=== PATIENT | male | born 1960 | race African-American/Black ===

== ENCOUNTER 2016-10-26 19:00 | Inpatient (IN) | payer MEDICAID ==
[2016-10-26 21:42] VITALS: BP 139/73
[2016-10-26] MEDS ORDERED: Maalox 30 mL Cup PO PRN (22:18)
[2016-10-26] MEDS ORDERED: Levofloxacin 500mg/100mL 500 MG/100 ML BAG IV ONE (22:30)
[2016-10-26] MEDS: D5-0.45NS 1,000 ML IV SCH (23:30)
[2016-10-27] MEDS: Hydrocodone/APAP 5mg/325mg Tab PO PRN ×3 (00:11→14:41)
[2016-10-27 01:02] LABS: ALKALINE PHOSPHATASE 39 U/L (34-104); ANION GAP 9.3 (7.0-16.0); BILIRUBIN,TOTAL 0.2 mg/dL (0.3-1.0); BUN - UREA NITROGEN 20 mg/dL (7-25); BUN/CREATININE RATIO 15.4; CALCIUM SERUM 8.4 mg/dL (8.6-10.3); CARBON DIOXIDE 25.5 mEq/L (21.0-31.0); CHLORIDE 102 mEq/L (98-107); CREATININE - SERUM 1.3 mg/dL (0.7-1.3); GLUCOSE 116 mg/dL (70-105); POTASSIUM SERUM 3.8 mEq/L (3.5-5.1); SGOT 28 U/L (13-39); SGPT/ALT 15 U/L (7-52); SODIUM SERUM 133 mEq/L (136-145)
[2016-10-27 01:05] LABS: % BASOPHILS 0.5 % (0.0-2.0); % EOSINOPHILS 0.1 % (0.0-5.0); % MONOCYTES 5.8 % (2.0-10.0); % NEUTROPHILS 80.6 % (40.0-80.0); HEMATOCRIT 37.1 % (39.0-49.0); HEMOGLOBIN 12.8 gm/dL (13.2-17.3); MEAN CELL VOLUME 90.1 fl (80-99); MEAN CORPUSCULAR HGB CONC 34.4 pg (28.0-36.0); MEAN PLATELET VOLUME 8.6 fl; NEUTROPHILE ABSOLUTE 5.6 Th/cmm (1.8-8.0); PLATELET COUNT 236 Th/cmm (150-400); RED BLOOD COUNT 4.12 Mil/cmm (4.30-5.70); WHITE BLOOD COUNT 6.9 Th/cmm (4.8-10.8)
[2016-10-27] MEDS: metroNIDAZOLE 500mg/NS 100mL 500 MG/100 ML BAG IV SCH ×3 (05:08→22:20)
[2016-10-27 05:47] LABS: URINE COLOR YELLOW
[2016-10-27 05:48] LABS: URINE BILIRUBIN NEGATIVE (NEGATIVE); URINE BLOOD TRACE (NEGATIVE); URINE GLUCOSE (UA) NEGATIVE (NEGATIVE); URINE KETONE NEGATIVE (NEGATIVE); URINE PH 5.5; URINE PROTEIN 100 mg/dL (NEGATIVE); URINE UROBILINOGEN 0.2 E.U./dL (0.2 - 1.0)
[2016-10-27 05:49] LABS: URINE BACTERIA FEW /hpf (NONE SEEN); URINE EPITHELIAL CELLS FEW /lpf (FEW)
[2016-10-27] MEDS: Albuterol Nebulizer 2.5mg/3mL IH SCH ×2 (08:20→12:09)
[2016-10-27] MEDS: guaiFENesin 200 MG/10 ML UDC PO PRN ×2 (09:20→14:42)
--- NOTE | 2016-10-27 11:00 | Diagnostic Imaging Report ---
Portable chest x-ray History: Cough Allowing for portable technique the heart size is normal. No focal pulmonary parenchymal processes. No hilar or mediastinal abnormalities. Impression: No acute abnormalities.
[2016-10-27] MEDS: D5-0.45NS 1,000 ML IV SCH (12:14)
--- NOTE | 2016-10-27 13:03 | Internal Medicine Prog Note ---
Internal Medicine Subjective - Subjective Service Date: 10/27/16 ([id number]) Internal Medicine Objective - Results Result Diagrams: 10/27/16 00:20 10/27/16 00:20 Recent Labs: Laboratory Last Values WBC 6.9 Th/cmm (4.8-10.8) 10/27/16 00:20 RBC 4.12 Mil/cmm (4.30-5.70) L 10/27/16 00:20 Hgb 12.8 gm/dL (13.2-17.3) L 10/27/16 00:20 Hct 37.1 % (39.0-49.0) L 10/27/16 00:20 MCV 90.1 fl (80-99) 10/27/16 00:20 MCH 31.0 pg (26.0-30.0) H 10/27/16 00:20 MCHC Differential 34.4 pg (28.0-36.0) 10/27/16 00:20 RDW 13.0 % (11.5-20.0) 10/27/16 00:20 Plt Count 236 Th/cmm (150-400) 10/27/16 00:20 MPV 8.6 fl 10/27/16 00:20 Neutrophils % 80.6 % (40.0-80.0) H 10/27/16 00:20 Lymphocytes % 13.0 % (20.0-50.0) L 10/27/16 00:20 Monocytes % 5.8 % (2.0-10.0) 10/27/16 00:20 Eosinophils % 0.1 % (0.0-5.0) 10/27/16 00:20 Basophils % 0.5 % (0.0-2.0) 10/27/16 00:20 Sodium 133 mEq/L (136-145) L 10/27/16 00:20 Potassium 3.8 mEq/L (3.5-5.1) 10/27/16 00:20 Chloride 102 mEq/L (98-107) 10/27/16 00:20 Carbon Dioxide 25.5 mEq/L (21.0-31.0) 10/27/16 00:20 Anion Gap 9.3 (7.0-16.0) 10/27/16 00:20 BUN 20 mg/dL (7-25) 10/27/16 00:20 Creatinine 1.3 mg/dL (0.7-1.3) 10/27/16 00:20 Est GFR ( Amer) > 60.0 ml/min 10/27/16 00:20 Est GFR (Non-Af Amer) > 60.0 ml/min 10/27/16 00:20 BUN/Creatinine Ratio 15.4 10/27/16 00:20 Glucose 116 mg/dL (70-105) H 10/27/16 00:20 Calcium 8.4 mg/dL (8.6-10.3) L 10/27/16 00:20 Magnesium 2.0 mg/dL (1.9-2.7) 10/27/16 00:20 Total Bilirubin 0.2 mg/dL (0.3-1.0) L 10/27/16 00:20 AST 28 U/L (13-39) 10/27/16 00:20 ALT 15 U/L (7-52) 10/27/16 00:20 Alkaline Phosphatase 39 U/L (34-104) 10/27/16 00:20 Ammonia 81 umol/L (16-53) H 10/27/16 00:20 Total Protein 6.2 gm/dL (6.0-8.3) 10/27/16 00:20 Albumin 3.1 gm/dL (4.2-5.5) L 10/27/16 00:20 Globulin 3.1 gm/dL 10/27/16 00:20 Albumin/Globulin Ratio 1.0 (1.0-1.8) 10/27/16 00:20 TSH 0.83 uIU/ml (0.34-5.60) 10/27/16 00:20 Urine Source CLEAN C 10/27/16 01:35 Urine Color YELLOW 10/27/16 01:35 Urine Clarity HAZY (CLEAR) 10/27/16 01:35 Urine pH 5.5 10/27/16 01:35 Ur Specific [place] 1.47656 (1.005-1.030) H 10/27/16 01:35 Urine Protein 100 mg/dL (NEGATIVE) H 10/27/16 01:35 Urine Glucose (UA) NEGATIVE mg/dL (NEGATIVE) 10/27/16 01:35 Urine Ketones NEGATIVE mg/dL (NEGATIVE) 10/27/16 01:35 Urine Blood TRACE (NEGATIVE) 10/27/16 01:35 Urine Nitrate NEGATIVE (NEGATIVE) 10/27/16 01:35 Urine Bilirubin NEGATIVE (NEGATIVE) 10/27/16 01:35 Urine Urobilinogen 0.2 E.U./dL (0.2 - 1.0) 10/27/16 01:35 Ur Leukocyte Esterase NEGATIVE (NEGATIVE) 10/27/16 01:35 Urine RBC 2-5 /hpf (0-5) H 10/27/16 01:35 Urine WBC 2-5 /hpf (0-5) H 10/27/16 01:35 Ur Epithelial Cells FEW /lpf (FEW) 10/27/16 01:35 Urine Bacteria FEW /hpf (NONE SEEN) 10/27/16 01:35 Coarse Granular Casts 2-5 /lpf (NONE SEEN) H 10/27/16 01:35 - Physical Exam Vitals and I&O: Vital Signs Temp 99.0 F 10/27/16 12:00 Pulse 76 10/27/16 12:10 Resp 18 10/27/16 12:10 BP 114/65 10/27/16 12:00 Pulse Ox 99 10/27/16 12:10 Intake & Output 10/26/16 10/27/16 10/27/16 18:59 06:59 18:59 Intake Total 100 1000 Balance 100 1000 Weight (lbs) 166 lb 9.6 oz Intake: Intake, IV Amount 100 1000 D5-0.45NS 1,000 ml @ 100 1000 mls/hr IV .Q10H [facility] Rx#: [id number] metroNIDAZOLE 500mg/NS 100 100mL 500 mg In 100 ml @ 100 mls/hr IV Q8HR [facility] Rx #:[id number] Other: Stool Characteristics Mucoid Brown Active Medications: Current Medications Acetaminophen (Tylenol) 650 mg PO Q4HR PRN PRN Reason: Pain(mild-mod) or temp>101.0 Stop: 12/25/16 22:17 Acetaminophen/Hydrocodone Bitart ([place] 5mg/325mg) 1 tab PO Q4H PRN PRN Reason: Pain (Severe) Stop: 12/25/16 22:17 Last Admin: 10/27/16 09:20 Dose: 1 tab Al Hydrox/Mg Hydrox/Simethicone (Maalox) 30 ml PO Q6HR PRN PRN Reason: Constipation Stop: 12/25/16 22:17 Last Admin: 10/27/16 03:11 Dose: 30 ml Albuterol Sulfate (Albuterol 2.5mg/3ml Neb Ud) 2.5 mg IH QID [facility] Stop: 12/26/16 08:59 Last Admin: 10/27/16 12:09 Dose: Not Given Clonidine HCl (Catapres) 0.1 mg PO Q6HR PRN PRN Reason: SBP GREATER THAN 160 Stop: 12/25/16 22:15 Guaifenesin (Robitussin) 200 mg PO Q4HR PRN PRN Reason: Cough or Congestion Stop: 12/25/16 22:17 Last Admin: 10/27/16 09:20 Dose: 200 mg Dextrose/Sodium Chloride (D5-0.45ns) 1,000 mls @ 100 mls/hr IV .Q10H [facility] Stop: 12/25/16 22:29 Last Admin: 10/27/16 12:14 Dose: 100 mls/hr Metronidazole (Flagyl) 500 mg in 100 mls @ 100 mls/hr IV Q8HR [facility] Stop: 12/26/16 04:59 Last Admin: 10/27/16 12:18 Dose: 100 mls/hr Levofloxacin (Levaquin Pb) 500 mg in 100 mls @ 100 mls/hr IV Q24HR [facility] Stop: 12/26/16 20:59 Meclizine HCl (Antivert) 25 mg PO DAILY PRN PRN Reason: Nausea / Vomiting Stop: 12/25/16 22:15 Ondansetron HCl (Zofran) 4 mg IV Q8H PRN PRN Reason: Nausea / Vomiting Stop: 12/25/16 22:17 Oseltamivir Phosphate (Tamiflu) 75 mg PO BID [facility] Stop: 10/31/16 17:01 Last Admin: 10/27/16 09:20 Dose: 75 mg Zolpidem Tartrate (Ambien) 10 mg PO HS PRN PRN Reason: Insomnia Stop: 12/25/16 22:15 Internal Medicine Assmt/Plan - Assessment Assessment: pna fever hypocalcemia hyponatremia protein calorie malnutrition
[2016-10-27] MEDS ORDERED: Influenza Vaccine 0.5 mL Syr IM ONE (13:43)
--- NOTE | 2016-10-27 14:56 | History & Physical ---
CHIEF COMPLAINT: Shortness of breath with fever. HISTORY OF PRESENT ILLNESS: This is a 55-year-old -[place] male who is a direct admission from [facility] who has a 4-day history of shortness of breath associated with fever with productive cough with dark thick green secretion. The patient does not take any Tylenol to help relieve his fever. For this reason, the patient brought himself to the ER at [facility] and due to insurance purposes, the patient is now here at [facility]. PAST MEDICAL HISTORY: None per patient. PAST SURGICAL HISTORY: Left knee surgery 9 years ago. SOCIAL HISTORY: The patient is a daily smoker, 4-5 cigarettes a day and drinks alcohol occasionally. Denies any streets drug. ALLERGIES: PSEUDOEPHEDRINE. FAMILY HISTORY: Noncontributory. REVIEW OF SYSTEMS: GENERAL: The patient admits to fever. Denies any chills. CARDIOVASCULAR: Denies any chest pain. RESPIRATORY: Admits to shortness of breath and cough. Denies any wheezing. GASTROINTESTINAL: Denies any nausea, vomiting, diarrhea, abdominal pain. GENITOURINARY: She denies any dysuria. All other systems are reviewed by me and are negative. PHYSICAL EXAMINATION: GENERAL: The patient is well developed, well nourished, no acute distress. VITAL SIGNS: Temperature 99.0, heart rate 66, blood pressure 114/65, respirations 18, O2 97%. HEENT: Head; normocephalic, atraumatic. NECK: Supple. No mass. LUNGS: Rhonchi bilaterally upon auscultation. HEART: Regular rate and rhythm. No murmurs or gallops. SKIN: Intact, warm and dry to touch. ABDOMEN: Soft, nontender, nondistended. Positive bowel sounds in all 4 quadrants. LABORATORY DATA: WBC 6.9, H and H 12.8 and 37.1. Sodium 133, potassium 3.8, chloride 102, carbon 25.5, BUN 20, creatinine 1.3. DIAGNOSTICS: The patient had a chest x-ray done and no acute abnormalities. ASSESSMENT: 1. Pneumonia. 2. Fever. 3. Hyponatremia. 4. Hypocalcemia. 5. Protein-calorie malnutrition. 6. Acute urinary tract infection. PLAN: The patient to be admitted to the telemetry unit. The patient will be on IV antibiotics. We will add Mucomyst. We will have sputum culture, blood culture, CBC, BMP will be monitored. We will continue to monitor the patient. [facility]# [id number]
[2016-10-27] MEDS: Albuterol Nebulizer 2.5mg/3mL HHN SCH ×2 (16:03→20:33)
[2016-10-27] MEDS ORDERED: Levofloxacin 500mg/100mL Premix Bag IV SCH (21:00)
--- NOTE | 2016-10-27 21:48 | Admit Criteria Form ---
Admit Criteria Forms - Admit Criteria Diagnosis: URINARY COMPLICATIONS Clinical Indications for Inpatient Care (Place 'X' for any and all applicable criteria): Ongoing inpatient care may be indicated for urinary complications with ANY ONE of the following: [ X]I. Urinary tract infection requiring inpatient care as indicated by ANY ONE of the following(8)(19)(20): [ ]a) Severe symptoms (eg, high fever, severe pain) [ ]b) Vomiting or dehydration requiring ongoing inpatient care [X ]c) IV antibiotic needs that cannot be managed at lower level of care [ ]d) Hemodynamic instability [ ]e) Obstruction of collecting system by stone or tumor [ ]II. Urinary retention requiring drainage or surgery (3)(4)(5)(17)(18) [ ]III. Renal failure (Use Renal Failure Criteria for further information.) [ ]IV. Oliguria(30) [ ]V. Post obstructive diuresis requiring close monitoring of urine output and intravenous compensation for excessive fluid losses(33) Extended stay beyond goal length of stay for primary condition may be needed until ALL of the following are present(3)(4)(5)(8): [ ]a) Renal function (creatinine) at baseline, or daily decreases in creatinine consistent with renal function return [ ]b) Voiding adequately or with urinary catheter or percutaneous suprapubic tube and management regimen in place that is performable at lower level of care. [ ]c) Urine output adequate [ ]d) Fever absent or resolving [ ]e) Infection absent or treatable at next level of care The original [employer] content created by [employer] has been revised. The portions of the content which have been revised are identified through the use of italic text or in bold, and [facility] has neither reviewed nor approved the modified material. All other unmodified content is copyright [facility] [employer] Please see references footnoted in the original [facility] edition 2016 Admit Criteria Met?: Yes
[2016-10-28] MEDS: metroNIDAZOLE 500mg/NS 100mL 500 MG/100 ML BAG IV SCH (05:04)
[2016-10-28] MEDS: Albuterol Nebulizer 2.5mg/3mL HHN SCH (07:05)
[2016-10-28] MEDS: guaiFENesin 200 MG/10 ML UDC PO PRN (08:16)
[2016-10-28 12:13] LABS: FOLIC ACID 12.6 ng/mL (>3.0)
--- NOTE | 2016-12-02 02:37 | Discharge Summary ---
ASSESSMENT: Pneumonia, fever, ____, , protein-calorie malnutrition, and acute urinary tract infection. HISTORY OF PRESENT ILLNESS: This is a 55-year-old -[place] Islander male, direct admission from [facility] with 4-day history of shortness of breath with fever and productive cough with dark thick green secretion. PHYSICAL EXAMINATION: GENERAL: Well-developed, well-nourished, no acute distress. VITAL SIGNS: Stable. HEENT: Head is normocephalic and atraumatic. NECK: Supple. No mass. LUNGS: Clear. CARDIOVASCULAR: Regular rate and rhythm. No murmurs or gallops. ABDOMEN: Soft, nontender, and nondistended. Positive bowel sounds in all 4 quadrants. The patient was admitted to the telemetry unit. The patient was on IV antibiotics and bronchodilators with supplemental oxygen. Unfortunately, the patient signed out AMA. The nursing staff educated the patient importance of staying. The patient still refused. JOB# [id number]
== END 2016-10-28 09:00 | disposition left against medical advice (07) | DRG 139 ==
LOC: MSI 19:00
PROVIDERS: ADMIT Internal Medicine; ATTEND Internal Medicine
DX: J18.9 Pneumonia, unspecified organism (principal); E46 Unspecified protein-calorie malnutrition; E87.1 Hypo-osmolality and hyponatremia; E83.51 Hypocalcemia; F17.210 Nicotine dependence, cigarettes, uncomplicated; N39.0 Urinary tract infection, site not specified; Z88.8 Allergy status to other drugs, medicaments and biological substances; Z68.24 Body mass index [BMI] 24.0-24.9, adult
CPT/HCPCS: 36415-UA; 71010-TC; 80053-TC; 81001-TC; 82140-TC; 82607-90; 82746-90; 83735-TC; 84443-TC; 85025-TC; 87070; 90799; 94760; J1956; J7613; Z7610